=== PATIENT | female | born 1970 | race Caucasian/White ===

== ENCOUNTER 2022-08-20 06:47 | Day surgery (SDC) | payer MEDICAID ==
[~2022-08-20] VITALS: Ht 162.6 cm; Wt 86.2 kg
[~2022-08-20 06:47] MED LIST: KEPPRA500 M2 PO; NORVASC PO
[2022-08-20 08:48] VITALS: BP 130/71
== END 2022-08-20 09:00 | disposition home or self-care (01) ==
LOC: ENDO 06:47
PROVIDERS: ATTEND Surgery
DX: Z12.11 Encounter for screening for malignant neoplasm of colon (principal); D12.0 Benign neoplasm of cecum; D12.5 Benign neoplasm of sigmoid colon; D12.8 Benign neoplasm of rectum; I10 Essential (primary) hypertension; F17.210 Nicotine dependence, cigarettes, uncomplicated